=== PATIENT | male | born 2000 | race African-American/Black ===

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

== ENCOUNTER 2022-05-18 18:52 | Emergency (ER) | payer OTHER ==
[2022-05-18] MEDS ORDERED: Acetaminophen 500 MG TAB ONE (19:24)
[2022-05-18] MEDS ORDERED: Ibuprofen 800 MG TAB ONE (19:24)
[2022-05-18] MEDS ORDERED: Oseltamivir 75 MG CAP ONE (20:21)
== END 2022-05-18 20:25 | disposition home or self-care (01) ==
LOC: MADERS 18:52
DX: J10.1 Influenza due to other identified influenza virus with other respiratory manifestations (principal); J45.909 Unspecified asthma, uncomplicated; Z20.822 Contact with and (suspected) exposure to COVID-19
CPT/HCPCS: 71045; 87081; 87430; 87804; U0003; U0005

== ENCOUNTER 2023-06-23 09:55 | Emergency (ER) | payer OTHER, SELFPAY | END 2023-06-23 11:30 | disposition home or self-care (01) | LOC: MADERS 09:55 | DX: S52.122A Displaced fracture of head of left radius, initial encounter for closed fracture (principal); W11.XXXA Fall on and from ladder, initial encounter | CPT/HCPCS: 29105 ==